=== PATIENT | female | born 1955 | race Caucasian/White ===

== ENCOUNTER 2019-08-01 12:11 | Inpatient (IN) | payer MEDICAID ==
[~2019-08-01] VITALS: Ht 152.4 cm; Wt 67.6 kg
[2019-08-01 12:27] VITALS: Ht 152.4 cm; Wt 67.6 kg
--- NOTE | 2019-08-01 13:03 | NUR ---
LEFT UPPER ARM BRUISE S/P MECHANICAL FALL YESTERDAY. NO LOC WITH FALL. SKIN INTACT AND PAIN 9/10 AT THIS TIME. NO OTHER COMPLAINTS AT THIS TIME. PT ARRIVES ALERT AND ORIENTED WITH NO DISTRESS NOTED AND DR PETTY AT BEDSIDE FOR EVAL
--- NOTE | 2019-08-01 13:27 | NUR ---
PT C/O DIARRHEA FOR 4 DAYS WITHOUT ABD PAIN AND NO PRESENCE OF BLOOD IN STOOL. DENIES N/V/ AND FEVER. ABD SOFT AND FLAT WITHOUT PALP MASSES PRESENT. PT ALSO C/O 8/10 HEDACHE PAIN FOR 3 DAYS. DENIES DIZZINES OR VISION CHANGES. PT ARRIVES ALERT AND ORIENTED WITH NO DISTRESS NOTED AND VSS. DR COLÓN AT BEDSIDE FOR EVAL
[2019-08-01 14:43] LABS: ALBUMIN 2.5 g/dL (3.4-5.0); ALKALINE PHOSPHATASE 243 U/L (46-116); ALT/SGPT 20 U/L (14-59); AST/SGOT 39 U/L (15-37); BILIRUBIN TOTAL 1.1 mg/dL (0.20-1.00); CALCIUM 7.8 mg/dL (8.5-10.1); CARBON DIOXIDE 26.9 mmol/L (21-32); CHLORIDE SERUM 96 mmol/L (98-107); CREATININE SERUM 0.7 mg/dL (0.6-1.0); GFR1 > 60 mL/min; GLUCOSE SERUM 125 mg/dL (74-106); SODIUM SERUM 125 mmol/L (136-145); TOTAL PROTEIN, SERUM 6.8 g/dL (6.4-8.2)
--- NOTE | 2019-08-01 14:43 | NUR ---
PT UP AMBULATING TO RESTROOM WITHOUT ASSIST. STEADY EVEN GAIT
[2019-08-01 14:49] LABS: BASOPHIL % 0.5 % (0-2)
--- NOTE | 2019-08-01 15:03 | NUR ---
URINE SENT TO LAB
[2019-08-01 15:12] LABS: PLATELET COUNT 77 x10^3mcL (130-400); RED CELL DISTRIBUTION WIDTH 23.2 % (11.5-14.5)
[2019-08-01 15:14] LABS: microscopic required? YES; urine erythrocyte TRACE (NEGATIVE)
[2019-08-01] MEDS ORDERED: ACTIGALL300 MG PO (16:01)
[2019-08-01] MEDS ORDERED: FERROUS SULFAT325 M2 PO (16:01)
[2019-08-01] MEDS ORDERED: ZOLOFT50 MG PO (16:01)
--- NOTE | 2019-08-01 16:28 | NUR ---
REPORT GIVEN TO TRICIA RAO RN.
--- NOTE | 2019-08-01 17:26 | NUR ---
RECEIVED PT FROM ED. PT ALERT/ LETHARGIC, ORIENTED X4. RESPIRATIONS EQUAL/ UNLABORED ON RA. NO REDNESS/ SWELLING AT IV SITE. ABD. SOFT, DISTENDED. NO C/O PAIN. +1 EDEMA TO BILAT. LE. PULSES PALPABLE IN ALL EXTREMITIES. PT REPORTS DIARRHEA X4 DAYS. STATED SHE HAD 6 LOOSE BM'S YESTERDAY AND 3 TODAY. VOIDING FREELY. GENERALIZED WEAKNESS/ GAIT SLIGHTLY UNSTEADY. FALL PRECAUTIONS IN PLACE. FAMILY AT BED SIDE, BED IN LOW POSITION, CALL LIGHT IN REACH. PT PLACED ON SIEZURE PRECAUTIONS. ORIENTED TO ROOM AND SURROUNDINGS. WILL CONTINUE TO MONITOR
[2019-08-01 18:23] VITALS: BP 127/75
--- NOTE | 2019-08-01 18:56 | NUR ---
PT LYING IN BED A/A. RESPIRATIONS EQUAL/ UNLABORED. MILD EXPIRATORY WHEEZING. NO ACUTE DISTRESS OR C/O PAIN. IVF RUNNING AT 50ML/HR. NO REDNESS/SWELLING AT IV SITE. BED IN LOW POSITION, CALL LIGHT IN REACH, FAMILY AT BEDSIDE. FALL PRECAUTIONS MAINTAINED.
[2019-08-01 19:38] VITALS: BP 122/80
--- NOTE | 2019-08-01 19:45 | NUR ---
RECEIVED PT FROM PREVIOUS SHIFT. PT A/OX4. DENIES PAIN. DENIES SOB ON RA. IV PATENT. FAMILY AT BEDSIDE. SEIZURE PRECAUTIONS IN PLACE. FALL PRECAUTIONS IN USE. IV PATENT AND INFUSING NS AT 50ML/HR WITH NO S/S OF INFILTRATION. CALL LIGHT WITHIN REACH, BED IN LOW POSITION. WILL CONTINUE TO MONITOR.
--- NOTE | 2019-08-01 23:46 | NUR ---
PT RESTING IN NO ACUTE DISTRESS. RR EVEN AND UNLABORED. CALL LIGHT WITHIN REACH, BED IN LOW POSITION. WILL CONTINUE TO MONITOR.
[2019-08-02 04:50] VITALS: BP 107/63
[2019-08-02 06:46] LABS: CALCIUM 7.2 mg/dL (8.5-10.1); CARBON DIOXIDE 22.3 mmol/L (21-32); CHLORIDE SERUM 104 mmol/L (98-107); CREATININE SERUM 0.6 mg/dL (0.6-1.0); GFR1 > 60 mL/min; GLUCOSE SERUM 104 mg/dL (74-106); MAGNESIUM 1.6 mg/dL (1.8-2.4); PHOSPHOROUS 3.6 mg/dL (2.5-4.9); POTASSIUM SERUM 4.4 mmol/L (3.5-5.1); SODIUM SERUM 133 mmol/L (136-145)
[2019-08-02 06:51] LABS: PLATELET COUNT 61 x10^3mcL (130-400); RED CELL DISTRIBUTION WIDTH 22.6 % (11.5-14.5)
--- NOTE | 2019-08-02 07:15 | NUR ---
SEEN IN BED AAOX3. NO SOB NOTED, BREATHING E/U ON ROOM AIR. ST CG=599 ON TELE#3. DENIES PAIN. ON REGULAR DIET. IVF NS INFUSING AT 50ML/HR TO LAC IV SITE, NO INFILTRATION NOTED. PLAN OF CARE DISCUSSED WITH PATIENT AND FAMILY MEMBER. CALL LIGHT PLACED WITHIN EASY REACH. SIDERAILS UP X2.
[2019-08-02 08:02] VITALS: BP 117/76
[2019-08-02 12:19] VITALS: BP 111/67
[2019-08-02 13:41] LABS: BAND NEUTROPHIL 3 % (0-10); SEGMENTED NEUTROPHILS 71 % (37-75)
[2019-08-02 13:42] LABS: MONOCYTE 11 % (0-7); PLATELET MORPHOLOGY PLATELETS DECREASED; ovalocyte/elliptocyte 1+; rbc morphology (normal/abnorm) ABNORMAL (NORMAL); schistocyte (helmet cell) 1+; tear drop cell (dacryocyte) 1+
[2019-08-02 16:48] VITALS: BP 104/72
--- NOTE | 2019-08-02 19:26 | NUR ---
RECEIVED PT FROM PREVIOUS SHIFT. PT A/OX4. DENIES PAIN. DENIES SOB ON RA. IV PATENT AND INSUFIN NS AT 50ML/HR WITH NO S/S OF INFILTRATION. FAMILY AT BEDSIDE. CALL LIGHT WITHIN REACH, BED IN LOW POSITION. WILL CONTINUE TO MONITOR.
[2019-08-02 19:39] VITALS: BP 112/65
--- NOTE | 2019-08-02 19:54 | NUR ---
NO ANY DISTRESS THROUGHOUT SHIFT. VSS. DENIES PAIN. HAD SOFT BM X4. BRP WITH ASSISTANCE. IVF NS AT 50ML/HR INFUSING WELL.
--- NOTE | 2019-08-02 21:41 | NUR ---
PATIENT C/O 10/10 PAIN TO BACK, R RIBS, AND R ARM. FAMILY MEMEBER AT BEDSIDE STATES PATIENT FELL IN BATHROOM AT 1800. FAMILY AND PATIENT DID NOT REPORT FALL TO ANY STAFF MEMBER, AND ASSISTED PATIENT BACK TO BED. DR CHAWLA MADE AWARE OF EARLIER FALL. PT MEDICATED WITH MORPHINE PRN PER EMAR. NO VISABLE BRUISING, LACERATIONS, OR INJURIES ON PATIENT AT THIS TIME. WILL CONTINUE TO MONITOR.
--- NOTE | 2019-08-03 00:25 | NUR ---
PT RESTING IN NO ACUTE DISTRESS. RR EVEN AND UNLABORED. IV PATENT AND INFUSING WELL WITH NO S/S OF INFILTRATION. CALL LIGHT WITHIN REACH, BED IN LOW POSITION. WILL CONTINUE TO MONITOR.
[2019-08-03 04:56] VITALS: BP 96/54
[2019-08-03 06:35] LABS: CALCIUM 7.1 mg/dL (8.5-10.1); CARBON DIOXIDE 22.7 mmol/L (21-32); CHLORIDE SERUM 106 mmol/L (98-107); CREATININE SERUM 0.6 mg/dL (0.6-1.0); GFR1 > 60 mL/min; GLUCOSE SERUM 84 mg/dL (74-106); MAGNESIUM 1.9 mg/dL (1.8-2.4); POTASSIUM SERUM 4.6 mmol/L (3.5-5.1); SODIUM SERUM 134 mmol/L (136-145)
[2019-08-03 06:38] LABS: BASOPHIL % 0.5 % (0-2)
--- NOTE | 2019-08-03 07:05 | NUR ---
SEEN IN BED RESTING WITH EYES CLOSED. NO RESP DISTRESS NOTED. AUDIBLE WHEEZING BUT LUNG SOUND CTA. DENIES PAIN. IVF NS AT 50ML/HR TO LAC INFUSING WELL. CALL LIGHT DISCUSSED WITH PATIENT AND PATIENT'S FAMILY AT BEDSIDE. CALL LIGHT PLACED WITHIN EASY REACH. SIDERAILS UP X2.
[2019-08-03 08:13] LABS: PLATELET COUNT 59 x10^3mcL (130-400); RED CELL DISTRIBUTION WIDTH 22.9 % (11.5-14.5)
[2019-08-03 09:04] VITALS: BP 107/65
[2019-08-03 12:09] VITALS: BP 107/65
--- NOTE | 2019-08-03 12:45 | NUR ---
FINISHED 100% OF RENAL DIET LUNCH.
--- NOTE | 2019-08-03 14:00 | NUR ---
C/O OF PAIN TO RIGHT RIBS AREA PER PATIENT AND HER SON AT BEDSIDE STATED THAT FROM PREVIOUS FALL YESTERDAY. CHURN OPERATOR MARGARINE DESRIRAE NOTIFIED, ORDERS FOR XRAY RIBS/CHEST AND NORCO PRN FOR PAIN MADE VIA PHONE, WILL BE CARRIED OUT.
--- NOTE | 2019-08-03 15:00 | NUR ---
RESTING WITH EYES CLOSED. NO ANY DISTRESS NOTED. PATIENT'S SON AT BEDSIDE AT ALL TIMES.
[2019-08-03 17:52] VITALS: BP 117/63
--- NOTE | 2019-08-03 19:20 | NUR ---
RECEIVED PT FROM PREVIOUS SHIFT. PT A/OX4. DENIES PAIN. DENIES SOB ON RA. IV PATENT AND INFUSING NS AT 50ML/HR WITH NO S/S OF INFILTRATION. CALL LIGHT WITHIN REACH, BED IN LOW POSITION. FAMILY AT BEDSIDE. WILL CONTINUE TO MONITOR.
[2019-08-03 20:06] VITALS: BP 114/66
--- NOTE | 2019-08-04 00:10 | NUR ---
PT RESTING IN NO ACUTE DISTRESS. RR EVEN AND UNLABORED. CALL LIGHT WITHIN REACH, BED IN LOW POSITION. WILL CONTINUE TO MONITOR.
[2019-08-04 05:38] VITALS: BP 95/62
[2019-08-04 06:41] LABS: BASOPHIL % 0.4 % (0-2)
--- NOTE | 2019-08-04 07:15 | NUR ---
NOTIFIED DR XAVIER OF PATIENT'S INCREASED WHEEZING. PT DENIES SOB. O2 SAT 98% ON RA.
[2019-08-04 07:49] LABS: PLATELET COUNT 67 x10^3mcL (130-400); RED CELL DISTRIBUTION WIDTH 22.6 % (11.5-14.5)
--- NOTE | 2019-08-04 08:12 | NUR ---
Recieved patient from night nurse at 0700. Patient observed being assisted to the restroom by daughter. Patient has an unsteady gait. PT evaluation scheduled for today. Patient appeared alert and oriented. Patient is estonian speaking. Fall risk and seizure precautions in place. Patient and daughter instructed to call for us when patient needs to attend to the bathroom.
[2019-08-04 08:34] VITALS: BP 123/79
[2019-08-04 09:25] LABS: CALCIUM 7.7 mg/dL (8.5-10.1); CARBON DIOXIDE 21.1 mmol/L (21-32); CHLORIDE SERUM 105 mmol/L (98-107); CREATININE SERUM 0.7 mg/dL (0.6-1.0); GFR1 > 60 mL/min; GLUCOSE SERUM 101 mg/dL (74-106); POTASSIUM SERUM 5.1 mmol/L (3.5-5.1); SODIUM SERUM 134 mmol/L (136-145)
--- NOTE | 2019-08-04 09:50 | NUR ---
Family would like patient to be transferred to [facility] because that is where the patient's liver specialist is. Will speak with charge nurse and case management regarding this.
--- NOTE | 2019-08-04 10:36 | NUR ---
BRIAN REYNOLDS is at bedside speaking with patient and family about plan.
[2019-08-04 11:23] VITALS: BP 128/81
[2019-08-04 11:56] LABS: rbc morphology (normal/abnorm) ABNORMAL (NORMAL)
--- NOTE | 2019-08-04 14:43 | NUR ---
AT 1015 - PATIENT AMBULATING WITH PHYSICAL THERAPY, USING A WALKER. AT 1220 - SPOKE WITH PATIENT'S FAMILY REGARDING CURRENT PLAN OF CARE. PATIENT TO RESUME LACTULOSE. LAST AMMONIA LEVEL 127. AT 1400 - PATIENT APPEARS MORE DROWSY THIS AFTERNOON.
[2019-08-04 16:24] VITALS: BP 141/81
--- NOTE | 2019-08-04 18:41 | NUR ---
VSS. PATIENT IS LETHARGIC BUT WHEN AWAKE, APPEAR ORIENTED. FAMILY WITH PATIENT AND ASSISTS WITH CARE. MONITOR SHOWING SINUS RHYTHM; RATE 100. AMBULATES WITH ASSISTANCE TO BATHROOM. IV INFUSING NS AT 50ML/HR. WILL ENDORSE CARE TO NIGHT NURSE.
--- NOTE | 2019-08-04 19:30 | NUR ---
PT IS ALERT x3 AND AWAKE. SLURRED AND SLOW SPEECH. PT STUMBLES WITH WORDS. SZ PRECAUTION IN PLACE. ON TELE #3, NSR. DENIES ANY CHEST PAIN OR PRESSURE. PULSES ARE PRESENT. EDEMA NOTED ON BLE. LUNGS CLEAR IN ALL FEILDS BUT AUDIABLE WHEEZING IS HEARD WHEN PT IS INHALING. PT DENIES ANY RESP DISTRESS. EQUAL CHEST RISE AND FALL. BOWEL SOUNDS PRESENT x4. PT C/O DIARRHEA BUT PT IS TAKING LACTULOSE. GENERAL WEAKNESS. SKIN WARM AND INTACT. DENIES ANY PAIN AT THIS TIME. IV ON LAC, INTACT AND PATENT. NO SIGN OF INFILTRATION OR IRRITATION NOTED. FAMILY IS AT BEDSIDE. BED IS AT LOWEST SETTING. CALL LIGHT WITHIN REACH. WILL CONTINUE TO MONITOR.
[2019-08-04 20:51] VITALS: BP 134/80
--- NOTE | 2019-08-05 02:03 | NUR ---
PT IS RESTING IN BED WITH BOTH EYES CLOSED. BREATHING EVEN AND UNLABORED. NO SIGN OF DISTRESS NOTED. FAMILY IS AT BEDSIDE. BED IS AT LOWEST SETTING. CALL LIGHT WITHIN REACH. WILL CONTINUE TO MONITOR.
[2019-08-05 05:07] VITALS: BP 113/69
--- NOTE | 2019-08-05 06:26 | NUR ---
PT IS RESTING IN BED WITH BOTH EYES CLOSED. BREATHING EVEN AND UNLABORED. NO SIGN OF DISTRESS NOTED. NO ACUTE EVENT OCCURED AT NIGHT. FAMILY MEMEBER AT BEDSIDE ALL NIGHT. BED IS AT LOWEST SETTING. CALL LIGHT WITHIN REACH. WILL ENDORSE TO AM NURSE.
[2019-08-05 06:40] LABS: CALCIUM 7.6 mg/dL (8.5-10.1); CARBON DIOXIDE 20.9 mmol/L (21-32); CHLORIDE SERUM 107 mmol/L (98-107); CREATININE SERUM 0.7 mg/dL (0.6-1.0); GFR1 > 60 mL/min; GLUCOSE SERUM 83 mg/dL (74-106); POTASSIUM SERUM 4.8 mmol/L (3.5-5.1); SODIUM SERUM 136 mmol/L (136-145)
[2019-08-05 06:56] LABS: PLATELET COUNT 62 x10^3mcL (130-400)
--- NOTE | 2019-08-05 07:35 | NUR ---
RECEIVED PT FROM MACHINE DRILLER. PT SLEEPY BUT AROUSABLE. PT A/OX3 WITH SOME CONFUSION NOTED. PT NOTED TO HAVE SLURRED SPEECH AND STUMBLES WITH WORDS. PT ON ROOM AIR WITH NO RESP DISTRESS NOTED, PT HAS EXPIRATORY WHEEZES IN UPPER RESP TRACT. PT ON TELE 3. DENIES CHEST PAIN. PERIPHERAL PULSES PALPABLE, TRACE EDEMA TO BLE. ACTIVE BS NOTED. NO APPARENT ISSUES WITH ELIMINATION. PT NOTED TO HAVE GENERALIZED WEAKNESS, UNSTEADY. SAFETY MEASURES IN PLACE, BED LOW AND LOCKED. CALL LIGHT WITHIN REACH.
[2019-08-05 08:17] VITALS: BP 95/71
--- NOTE | 2019-08-05 08:55 | NUR ---
DUE MEDICATIONS ADMINISTERED. PT TOLERATED WELL. NO DISCOMFORT NOTED AT THIS TIME.
[2019-08-05 09:55] LABS: MONOCYTE 2 % (0-7); SEGMENTED NEUTROPHILS 38 % (37-75)
[2019-08-05 09:56] LABS: PLATELET MORPHOLOGY PLATELETS DECREASED; rbc morphology (normal/abnorm) ABNORMAL (NORMAL)
--- NOTE | 2019-08-05 10:37 | NUR ---
PT FAMILY AT BEDSIDE. PT MISSING TWO HOME MEDS, DAUGHTER WILL SEND INFO TO [place] TODAY WHO WILL BE AT BEDSIDE.
[2019-08-05 12:16] VITALS: BP 125/74
[2019-08-05] MEDS ORDERED: LASIX40 MG PO (13:38)
[2019-08-05] MEDS ORDERED: SPIRONOLACTONE100 MG PO (13:38)
[2019-08-05 13:55] VITALS: BP 126/90
--- NOTE | 2019-08-05 14:05 | NUR ---
PT AWAKE, EATING LUNCH. FUROSEMIDE ADMINISTERED ORDERED (SEE EMAR). SAFETY MAINTAINED. FAMILY AT BEDSIDE.
--- NOTE | 2019-08-05 14:57 | NUR ---
PT RESTING AT THIS TIME WITH FAMILY AT BEDSIDE. NO ACUTE DISTRESS OR DISCOMFORT NOTED. DUE LACTULOSE ADMINISTERED ORDERED (SEE EMAR).
--- NOTE | 2019-08-05 15:12 | NUR ---
1. Recommend continuing 2 gm sodium diet at this time.
--- NOTE | 2019-08-05 15:12 | NUR ---
Initial Nutrition Assessment: 241T/B CHARLIE SERRANO IA HR Dx: Hepatic encephalopathy PMHx: liver cirrhosis, esophageal varices PSHx: not documented Labs: CA 7.6L, Ammonia 78H, WBC 2.9L, HGB 8.4L Meds: Ferrous sulfate, lactulose syrup, morphine, Pepcid, zofran Diet: 2 gm sodium PO Intake: (08/04) lunch 20%, (08/03) lunch, breakfast 100%, (08/02) lunch 100% Ht: 152.4 cm (60") Wt: 67.6 kg (148#) BMI: 29.1 kg/m2 Bed scale: 148.1# IBW: 100# (45 kg) %IBW: 148 UBW: 148-149# Age: 64/F Food Allergies: NKFA Skin: intact Catarino: 19 Edema: trace BLE GI: diarrhea, on lactulose Last BM: 08/04 Trigger: N/V/D>3d Per H&P, Pt is a 64-year old female who was seen and examined in the ER. According to patients son at bedside for about 2 weeks patient has been having weakness associated with watery diarrhea. RDN Visit (08/05): Patient was sleeping the first time I went to see her with no family at bedside. During the next visit, patient's nephew was at bedside and he said that patient ate about 50% lunch today. Problem with: N/V/D/C: diarrhea sometimes Problems with: Chewing/Swallowing: none Current appetite: good Recent wt change: none %wt change: n/a Vitamin/Supplement use: none Special diet at home: avoids soda Physical activity: sedentary Nutrition education given: none at this time as patient seems a little confused Food-drug interactions: none Education given: n/a Estimated Nutritional Needs Based on current body weight 67.6 kg Energy: 0964-2281 kcal/d (25-30 kcal/kg) Protein: 67-81 g/d (1.0-1.2 g/kg) - preserve LBM Fluid: 3525-7857 ml/d (1 ml/kcal) or per doctor Nutrition Diagnosis 1. Impaired nutrient utilization related to hepatic encephalopathy as evidenced by ammonia 78H Intervention 1. Recommend continuing 2 gm sodium diet at this time. Monitor/Evaluate Goal: PO intake at least 75% of estimated needs Monitor: PO intake, Labs, GI function F/U in 3-5 days as moderate risk
--- NOTE | 2019-08-05 15:30 | NUR ---
PT NOTED TO HAVE LOOSE STOOL. BRIGHT RED BLOOD NOTED TO TOILET. PER FAMILY THIS IS NOT NEW FOR PATIENT DUE TO HER LIVER CONDITION. [facility] ASSIST[facility] AWARE, NO NEW ORDERS.
[2019-08-05 16:31] VITALS: BP 118/75
--- NOTE | 2019-08-05 17:02 | NUR ---
PT RESTING AT THIS TIME WITH NO ACUTE DISTRESS NOTED. DUE LACTULOSE ADMINISTERED ORDERED (SEE EMAR). FAMILY AT BEDSIDE. SAFETY MEASURES MAINTAINED.
--- NOTE | 2019-08-05 17:30 | NUR ---
PT ASLEEP AT THIS TIME WITH NO DISCOMFORT NOTED. SAFETY MAINTAINED.
--- NOTE | 2019-08-05 18:44 | NUR ---
PT STABLE AT THIS TIME. ALL NEEDS MET THROUGHOUT SHIFT. WILL CONTINUE TO MONITOR AND ENDORSE CARE TO MANAGER COMMUNITY.
--- NOTE | 2019-08-05 19:56 | NUR ---
RECEIVED AWAKE IN BED, ALERT BUT CONFUSED AND DISORIENTED. REALITY REORIENTATION RENDERED. SKIN WARM AND DRY TO TOUCH, RESPIRATION EVEN AND UNLABORED WITH WHEEXING TO SHWETHA;ATERAL BASES. IV SITE AT THE LAC INTACT AND PATENT WITH IVF NS AT 50ML/HR TOLERASTING WELL.
[2019-08-05 21:04] VITALS: BP 128/72
--- NOTE | 2019-08-06 00:11 | NUR ---
RESTING IN BED WITH EYES CLOSED, RESPIRATION EVEN AND UNLABORED. NO S/S OF ACUTE TRESPIRATORY DISTRESS. FAMILY AT BEDSIDE VERY SUPPORTIVE OF CARE.
--- NOTE | 2019-08-06 05:18 | NUR ---
IV ACCESS AT THE LAC AREA WITH SWELLING AND REDNESS AND VERY TENDER TO TOUCH, NEW IV ACCESS STARTED AT THE LAC USING G#22 WITH GOOD BLOOD FLOW RETURN. BED IN LOWEST POSITION.
[2019-08-06 05:32] VITALS: BP 102/64
[2019-08-06 06:27] LABS: CALCIUM 7.3 mg/dL (8.5-10.1); CARBON DIOXIDE 22.4 mmol/L (21-32); CHLORIDE SERUM 110 mmol/L (98-107); CREATININE SERUM 0.6 mg/dL (0.6-1.0); GFR1 > 60 mL/min; GLUCOSE SERUM 84 mg/dL (74-106); SODIUM SERUM 140 mmol/L (136-145)
[2019-08-06 06:41] LABS: PLATELET COUNT 59 x10^3mcL (130-400); RED CELL DISTRIBUTION WIDTH 22.6 % (11.5-14.5)
--- NOTE | 2019-08-06 07:30 | NUR ---
RECEIVED PATIENT IN BED, APPEARS TO BE RESTING WELL. AROUSED TO VERBAL STIMULI. SLURRED SPPECH NOTED. TELE 3 NSR. TRACE EDEMA BLE. RESP EVEN AND UNLABORED, OCCAS EXP WHEEZES NOTED, ON ROOM AIR. GENERALIZED WEAKNESS NOTED, UNSTEADY GAIT, REQUIRES ASSIST, P.T. TO WORK WITH PATIENT. BED IN LOW POSITION AND BED ALARM ON. IVF INFUSING WELL TO RT A/C NO SWELLING OR REDNESS NOTED. NO ACUTE DISTRESS NOTED. WILL CONTINUE TO MONITOR.
[2019-08-06 08:22] LABS: BAND NEUTROPHIL 0 % (0-10); SEGMENTED NEUTROPHILS 90 % (37-75)
[2019-08-06 08:23] LABS: MONOCYTE 3 % (0-7)
[2019-08-06 08:35] VITALS: BP 95/59
[2019-08-06 08:56] LABS: rbc morphology (normal/abnorm) ABNORMAL (NORMAL)
[2019-08-06] MEDS ORDERED: LAC15L PO (10:12)
[2019-08-06 11:30] VITALS: BP 95/59
--- NOTE | 2019-08-06 13:10 | NUR ---
PATIENT TO D/C HOME TODAY. STUDENT NURSE D/C'D IV AND TELE AT THIS TIME. AWAITIING PATIENT'S DAUGHTER TO ARRIVE TO PICK PT UP.
--- NOTE | 2019-08-06 13:30 | NUR ---
PATIENT IS READY TO BE D/C'D HOME. DAUGHTER AT BEDSIDE TO TAKE PATIENT HOME. PRESCRIPTION AND DISCHARGE INSTRUCTIONS GIVEN AND EDUCATION PROVIDED. PER PATIENT'S DAUGHTER HOME HEALTH HAS ALREADY SPOKEN TO HER. PERSONL BELONGINGS LIST SIGNED.
--- NOTE | 2019-08-06 14:21 | NUR ---
PHYSICAL THERAPY DAILY NOTES CO-SIGN All documentation done by the Pile Driving Technician for 08/06/19 has been reviewed. I agree with the documentation. Reviewed/Co-Signed by: Andie Lindquist PT Documentation Done by: CAROLYN VILLANUEVA PTA
== END 2019-08-06 14:03 | disposition home or self-care (01) | DRG 279 ==
LOC: ED 12:11 → MU 15:14 → DU 15:14
PROVIDERS: Emergency Medicine; General Practice; ADMIT Internal Medicine
DX: K72.00 Acute and subacute hepatic failure without coma (principal); E43 Unspecified severe protein-calorie malnutrition; D69.59 Other secondary thrombocytopenia; E87.1 Hypo-osmolality and hyponatremia; E83.51 Hypocalcemia; K74.60 Unspecified cirrhosis of liver; R19.7 Diarrhea, unspecified; K76.0 Fatty (change of) liver, not elsewhere classified; K42.9 Umbilical hernia without obstruction or gangrene; D64.9 Anemia, unspecified; Z68.27 Body mass index [BMI] 27.0-27.9, adult
CPT/HCPCS: 97116-GP; 97530-GP; G0378; J1885; J2270; J3475; J3490; J7030; Q0092